=== PATIENT | male | born 1955 | race Caucasian/White ===

== ENCOUNTER 2016-12-07 22:51 | Emergency (ER) | payer BC ==
[~2016-12-07] VITALS: Ht 177.8 cm; Wt 104.4 kg
[2016-12-07 23:14] VITALS: BP 200/119
== END 2016-12-08 00:25 | disposition home or self-care (01) ==
LOC: EXP 22:51 → EME 22:51 → EXP 12-08 00:25
DX: S61.215A Laceration without foreign body of left ring finger without damage to nail, initial encounter (principal); W26.0XXA Contact with knife, initial encounter; Z23 Encounter for immunization; Z79.82 Long term (current) use of aspirin
CPT/HCPCS: 99281; 99284